=== PATIENT | female | born 1985 | race Caucasian/White ===

== ENCOUNTER 2018-01-24 23:04 | Emergency (ER) | payer MEDICARE, OTHER ==
[~2018-01-24] VITALS: Ht 160 cm; Wt 51.0 kg
[2018-01-25] MEDS ORDERED: clonazePAM 1mg tablet PO ONE (00:05)
[2018-01-25] MEDS ORDERED: phenytoin sod ER 100mg capsule PO ONE (00:10)
[2018-01-25] MEDS ORDERED: metoprolol tartrate 50mg tablet PO ONE (00:20)
[2018-01-25] MEDS ORDERED: METO50TA17 PO ×2 (00:27→00:51)
[2018-01-25] MEDS ORDERED: BUPR75TA12 PO ×2 (00:27→00:51)
[2018-01-25] MEDS ORDERED: ZOLP10TA5 PO ×2 (00:27→00:51)
[2018-01-25] MEDS ORDERED: PHEN100C12 PO ×2 (00:27→00:51)
[2018-01-25] MEDS ORDERED: CLON-527 PO ×2 (00:27→00:51)
[2018-01-25 00:58] VITALS: BP 125/73
== END 2018-01-25 00:59 | disposition home or self-care (01) ==
LOC: ER 23:07
DX: F41.9 Anxiety disorder, unspecified (principal); R53.83 Other fatigue; R53.1 Weakness; Z76.0 Encounter for issue of repeat prescription; Z88.8 Allergy status to other drugs, medicaments and biological substances
CPT/HCPCS: 99284

== ENCOUNTER 2018-05-20 20:42 | Emergency (ER) | payer MEDICARE, OTHER ==
[~2018-05-20 20:42] MED LIST: BUPR75TA12 PO; CLON-527 PO; METO50TA17 PO; PHEN100C12 PO; ZOLP10TA5 PO
== END 2018-05-20 21:37 | disposition left against medical advice (07) ==
LOC: ER 20:42
DX: R56.9 Unspecified convulsions (principal); Z53.21 Procedure and treatment not carried out due to patient leaving prior to being seen by health care provider